=== PATIENT | female | born 1945 | race Caucasian/White ===

== ENCOUNTER 2023-12-17 10:40 | Outpatient (CLI) | payer MEDICARE | END 2023-12-17 10:41 | disposition home or self-care (01) | LOC: CSHRAD 10:40 | PROVIDERS: ATTEND Family Medicine | DX: M54.2 Cervicalgia (principal); M54.41 Lumbago with sciatica, right side; M47.812 Spondylosis without myelopathy or radiculopathy, cervical region; M47.816 Spondylosis without myelopathy or radiculopathy, lumbar region; M43.17 Spondylolisthesis, lumbosacral region | CPT/HCPCS: 72040; 72100 ==

== ENCOUNTER 2024-08-27 13:16 | Outpatient (CLI) | payer MEDICARE | END 2024-08-27 13:17 | disposition home or self-care (01) | LOC: CSHMAMMO 13:16 | PROVIDERS: ATTEND Family Medicine | DX: Z12.31 Encounter for screening mammogram for malignant neoplasm of breast (principal); R92.1 Mammographic calcification found on diagnostic imaging of breast; R59.0 Localized enlarged lymph nodes | CPT/HCPCS: 77063; 77067 ==

== ENCOUNTER 2024-09-04 09:40 | Outpatient (CLI) | payer MEDICARE | END 2024-09-04 09:41 | disposition home or self-care (01) | LOC: CSHMAMMO 09:40 | PROVIDERS: ATTEND Family Medicine | DX: R92.1 Mammographic calcification found on diagnostic imaging of breast (principal) | CPT/HCPCS: 76642; 77065; G0279 ==